=== PATIENT | female | born 2000 | race Two or more races ===

== ENCOUNTER 2022-05-30 10:27 | Outpatient (CLI) | payer OTHER | END 2022-05-30 12:21 | disposition home or self-care (01) | LOC: PRENATAL 10:27 | PROVIDERS: ATTEND Obstetrics & Gynecology Maternal & Fetal Medicine | DX: O35.0XX0 Maternal care for (suspected) central nervous system malformation in fetus, not applicable or unspecified (principal); O35.3XX0 Maternal care for (suspected) damage to fetus from viral disease in mother, not applicable or unspecified; O26.879 Cervical shortening, unspecified trimester; Z3A.21 21 weeks gestation of pregnancy ==

== ENCOUNTER 2022-06-27 13:24 | Outpatient (CLI) | payer OTHER | END 2022-06-27 15:13 | disposition home or self-care (01) | LOC: PRENATAL 13:24 | DX: O26.849 Uterine size-date discrepancy, unspecified trimester (principal); O26.879 Cervical shortening, unspecified trimester; Z3A.25 25 weeks gestation of pregnancy ==

== ENCOUNTER 2022-08-11 16:22 | Inpatient (IN) | payer OTHER ==
[~2022-08-11] VITALS: Ht 160 cm; Wt 70.8 kg
[2022-08-12] MEDS ORDERED: PRENATAL CAPLE1 EAC1 PO
[2022-08-12] MEDS ORDERED: PROGESTERONE200 MG PO (00:01)
== END 2022-08-26 12:05 | disposition home or self-care (01) | DRG 833 ==
LOC: LDR 16:22 → OB/GYN 08-12 12:32
PROVIDERS: ADMIT Obstetrics & Gynecology; ATTEND Obstetrics & Gynecology
PROC: 4A1HXCZ Monitoring of Products of Conception, Cardiac Rate, External Approach (ICD-10-PCS; principal; 2022-08-11)
PROC: BY4FZZZ Ultrasonography of Third Trimester, Single Fetus (ICD-10-PCS; 2022-08-11)
PROC: BU4CZZZ Ultrasonography of Uterus and Ovaries (ICD-10-PCS; 2022-08-11)
DX: O60.03 Preterm labor without delivery, third trimester (principal); Z3A.31 31 weeks gestation of pregnancy; Z20.822 Contact with and (suspected) exposure to COVID-19

== ENCOUNTER 2022-09-22 12:46 | Outpatient (CLI) | payer OTHER ==
[~2022-09-22 12:46] MED LIST: PRENATAL CAPLE1 EAC1 PO; PROGESTERONE200 MG PO
== END 2022-09-22 16:40 | disposition home or self-care (01) ==
LOC: OBS/DEL 12:46
PROVIDERS: ATTEND Obstetrics & Gynecology
DX: O26.893 Other specified pregnancy related conditions, third trimester (principal); Z3A.37 37 weeks gestation of pregnancy

== ENCOUNTER 2022-09-29 08:00 | Inpatient (IN) | payer OTHER ==
[~2022-09-29] VITALS: Ht 160 cm; Wt 70.8 kg
== END 2022-10-01 13:43 | disposition home or self-care (01) | DRG 807 ==
LOC: OB/GYN 08:00 → LDR 08:00 → OB/GYN 14:35
PROVIDERS: ADMIT Obstetrics & Gynecology; ATTEND Obstetrics & Gynecology
PROC: 10E0XZZ Delivery of Products of Conception, External Approach (ICD-10-PCS; principal; 2022-09-29)
PROC: 0KQM0ZZ Repair Perineum Muscle, Open Approach (ICD-10-PCS; 2022-09-29)
PROC: 4A1HXCZ Monitoring of Products of Conception, Cardiac Rate, External Approach (ICD-10-PCS; 2022-09-29)
DX: O70.1 Second degree perineal laceration during delivery (principal); Z37.0 Single live birth; Z3A.38 38 weeks gestation of pregnancy; Z20.822 Contact with and (suspected) exposure to COVID-19

== ENCOUNTER 2022-10-04 11:22 | Outpatient (CLI) | payer OTHER | END 2022-10-04 11:24 | disposition home or self-care (01) | LOC: LAB 11:22 | DX: Z20.828 Contact with and (suspected) exposure to other viral communicable diseases (principal) ==

== ENCOUNTER 2022-10-07 12:30 | Outpatient (CLI) | payer OTHER | END 2022-10-07 12:31 | disposition home or self-care (01) | LOC: LAB 12:30 | DX: Z20.828 Contact with and (suspected) exposure to other viral communicable diseases (principal) ==

== ENCOUNTER 2025-10-25 14:09 | Outpatient (CLI) | payer OTHER | END 2025-10-25 14:10 | disposition home or self-care (01) | LOC: PRENATAL 14:09 | PROVIDERS: ATTEND Obstetrics & Gynecology Maternal & Fetal Medicine | DX: O36.80X0 Pregnancy with inconclusive fetal viability, not applicable or unspecified (principal); Z36.82 Encounter for antenatal screening for nuchal translucency; Z14.8 Genetic carrier of other disease; O36.1930 Maternal care for other isoimmunization, third trimester, not applicable or unspecified; Z3A.14 14 weeks gestation of pregnancy ==